=== PATIENT | male | born 1990 | race Caucasian/White ===

== ENCOUNTER 2017-12-26 19:51 | Emergency (ER) | payer OTHER ==
[~2017-12-26] VITALS: Ht 154.9 cm; Wt 79.4 kg
[~2017-12-26 19:51] MED LIST: ANAPROX DS550 MG PO; AUGMENTIN 875 M1 TAB PO; BACTRIM DS 8001 TA1 PO; BACTROBAN CREAM15 GM PO; CIPRO500 MG PO; CIPROFLOXACIN500 MG PO; CLARITIN10 MG PO; CORTISPORIN 1%-10 M1 OT; FLEXERIL10 MG PO; HYDROCODONE BIT1 T11 PO; IBU800 M1 PO; KEFLEX500 M1 PO; MOTRIN800 MG PO; Motrin,Rufen800 MG PO; NAPROSYN500 MG PO; NKHM; PERCOCET 325 MG1 TA6 PO; PERCOCET 325 MG1 TA7 PO; SEPTRA DS 800 M1 TAB PO; TRAMADOL HCL50 MG PO; ULTRAM50 MG PO; VICODIN 5/500 505 MG PO; VICODIN 500 MG-1 TAB PO; ZANTAC150 MG PO; ZITHROMAX Z PA250 MG PO
[2017-12-26 19:59] VITALS: BP 134/79
[2017-12-26] MEDS ORDERED: Motrin,Rufen800 MG PO (21:39)
== END 2017-12-26 21:41 | disposition home or self-care (01) ==
LOC: ED 19:51
DX: S40.011A Contusion of right shoulder, initial encounter (principal); S60.211A Contusion of right wrist, initial encounter; W10.9XXA Fall (on) (from) unspecified stairs and steps, initial encounter; Y93.89 Activity, other specified; Y92.89 Other specified places as the place of occurrence of the external cause; Y99.8 Other external cause status; F17.200 Nicotine dependence, unspecified, uncomplicated; Z91.040 Latex allergy status

== ENCOUNTER 2018-05-22 10:36 | Emergency (ER) | payer OTHER ==
[~2018-05-22] VITALS: Ht 180.3 cm; Wt 78.5 kg
[2018-05-22 10:36] VITALS: BP 142/76
== END 2018-05-22 10:55 | disposition home or self-care (01) ==
LOC: ED 10:36
DX: S01.81XD Laceration without foreign body of other part of head, subsequent encounter (principal); R03.0 Elevated blood-pressure reading, without diagnosis of hypertension; Z48.02 Encounter for removal of sutures; Z48.01 Encounter for change or removal of surgical wound dressing; Z91.040 Latex allergy status; X58.XXXD Exposure to other specified factors, subsequent encounter

== ENCOUNTER 2018-07-12 11:05 | Emergency (ER) | payer OTHER ==
[~2018-07-12] VITALS: Ht 180.3 cm; Wt 78.5 kg
[2018-07-12 11:06] VITALS: BP 123/68
[2018-07-12] MEDS ORDERED: NAPROSYN500 MG PO (11:20)
[2018-07-12] MEDS ORDERED: PENICILLIN VK500 MG PO (11:20)
== END 2018-07-12 11:40 | disposition home or self-care (01) ==
LOC: ED 11:05
DX: K04.7 Periapical abscess without sinus (principal); Z91.040 Latex allergy status

== ENCOUNTER 2018-09-23 15:06 | Emergency (ER) | payer OTHER ==
[~2018-09-23] VITALS: Ht 180.3 cm; Wt 78.5 kg
[~2018-09-23 15:06] MED LIST changes: +PENICILLIN VK500 MG PO
[2018-09-23 15:08] VITALS: BP 144/85
[2018-09-23] MEDS ORDERED: SEPTDS PO (15:29)
== END 2018-09-23 15:38 | disposition home or self-care (01) ==
LOC: ED 15:06
DX: S30.861A Insect bite (nonvenomous) of abdominal wall, initial encounter (principal); F17.200 Nicotine dependence, unspecified, uncomplicated; Z91.040 Latex allergy status; Z79.1 Long term (current) use of non-steroidal anti-inflammatories (NSAID); Z79.2 Long term (current) use of antibiotics; W57.XXXA Bitten or stung by nonvenomous insect and other nonvenomous arthropods, initial encounter; Y93.89 Activity, other specified; Y92.89 Other specified places as the place of occurrence of the external cause; Y99.8 Other external cause status

== ENCOUNTER 2018-11-30 16:29 | Emergency (ER) | payer OTHER ==
[~2018-11-30] VITALS: Ht 180.3 cm; Wt 69.4 kg
[~2018-11-30 16:29] MED LIST changes: +SEPTDS PO
[2018-11-30 17:16] LABS: BASO # 0.1 10*3/uL (0.0-0.1); BASO % 0.9 % (0.0-1.0); EOS # 0.3 10*3/uL (0.0-0.4); EOS % 5.9 % (1.0-4.0); HEMATOCRIT 45.9 % (42.0-52.0); HEMOGLOBIN 15.6 g/dl (14.0-18.0); LYMPH # 2.2 10*3/uL (1.3-4.4); LYMPH % 37.8 % (27.0-41.0); MEAN CELL VOLUME 93.3 fl (80.0-94.0); MEAN CORPUSCULAR HGB 31.7 pg (27.0-31.0); MEAN PLATELET VOLUME 9.1 fl (9.6-12.3); MONO # 0.6 10*3/uL (0.1-1.0); NEUT # 2.6 10*3/uL (2.3-7.9); NEUT % 45.2 % (47.0-73.0); PLATELET COUNT AUTOMATED 227 10*3/uL (130-400); RED BLOOD COUNT 4.92 10*6/uL (4.50-5.90); RED CELL DISTRI WIDTH 12.8 % (0-14.5); WHITE BLOOD COUNT 5.7 10*3/uL (4.8-10.8)
[2018-11-30 17:49] LABS: ALBUMIN 3.4 gm/dl (3.1-4.5); ALKALINE PHOSPHATASE 97 U/L (45-117); BUN 11 mg/dl (7-24); CHLORIDE 106 mmol/L (98-107); CREATININE 0.71 mg/dL (0.70-1.30); LIPASE 83 U/L (73-393); SGOT/AST 47 IU/L (3-35); SGPT/ALT 85 U/L (12-78); SODIUM 141 mmol/L (136-145); TOTAL PROTEIN 6.8 gm/dL (6.4-8.2)
[2018-11-30 18:00] VITALS: BP 120/60
[2018-11-30] MEDS ORDERED: ZOFRAN4 MG PO (18:39)
== END 2018-11-30 18:42 | disposition home or self-care (01) ==
LOC: ED 16:29
PROVIDERS: Physician Assistant
DX: R11.2 Nausea with vomiting, unspecified (principal); K30 Functional dyspepsia; R51 Headache; Z91.040 Latex allergy status; Z79.2 Long term (current) use of antibiotics; Z79.899 Other long term (current) drug therapy